=== PATIENT | female | born 1990 | race Caucasian/White ===

== ENCOUNTER 2024-08-14 04:02 | Emergency (ER) | payer OTHER, SELFPAY ==
--- NOTE | 2024-08-14 04:00 | RT.EKG_ITS ---
APPROVED REPORT Exam: Resting ECG Reason for Exam: r upper abd pain Patient Location: E HR:66 bpm ECG Measurements Heart Rate [address] 148 P 18 QRSd 94 QRS 46 QT 394 T 43 QTc 414 Conclusion Sinus rhythm...normal P axis, V-rate 60- 99 Normal Electrocardiogram
[2024-08-14 04:05] VITALS: BP 137/83; PULSE 76; RESP 16; TEMP 36.1; O2SAT 97
--- NOTE | 2024-08-14 04:09 | W.ED.GENAD ---
Discharge Plan Discharge Details Chief Complaint: Chest Pain Clinical Impression: Right upper quadrant abdominal pain Primary Care Provider: Unknown,Unknown ED Provider: Alexis Son Home Meds and New Rx's Prescriptions: No Action No Known Home Meds HPI General Mode of arrival: ambulatory. Date/Time Provider Initiated Documentation: 08/14/24 04:04. Limitations to Documentation: no limitations. Information obtained by: patient and RN notes reviewed. HPI Narrative: Patient presents to ED with right upper quadrant pain radiating into her back. Patient states that while visiting in [place] last month she ended up with an ERCP and has a biliary stent in place. She has had no issues since that procedure until [facility]. She woke up around 11 PM with right sided abdominal pain. This pain is different than her previous episodes of biliary colic. She does still have her gallbladder. Stent is still in place and she has not had follow-up since returning to [place]. She has nausea but no vomiting. Denies chest pain or shortness of breath. Denies fever or cough. Denies any urinary symptoms. Describes it mostly as a discomfort. Related Data Home Medications ?Medication ?Instructions ?Recorded ?Confirmed Unknown [No Known Home Meds] 08/14/24 08/14/24 Allergies Allergy/AdvReac Type Severity Reaction Status Date / Time Penicillins Allergy Hives Verified 08/14/24 04:13 Exam Narrative Exam Narrative: Const: WDWN female in NAD. VS per triage. HEENT: NC/AT. Normal facial exam. Neck: Supple. Trachea midline. Lungs: Normal respiratory effort. Lungs are clear. Cor: RRR without murmur. Good radial pulses. GI: Soft/ND/NT. Neuro: A+O x 3. Normal speech, mentation, gait. Cranial nerves II - XII grossly intact. No gross motor or sensory deficit. Ext: No C/C/E. Medical Decision Making Patient presenting to ED with right upper quadrant pain radiating to her back. She is status post ERCP with biliary stent about a month ago. She has nausea but no vomiting. Her abdomen is completely benign. EKG obtained at triage is normal per my read. Presentation and age not consistent with ACS. Consider possibility of PE but unlikely and PERCs out. Lungs are clear and saturations are normal. No fever or cough, doubt pneumonia. No urinary symptoms but will check urinalysis. Consider recurrent biliary colic though she states not consistent with previous symptoms. Consider biliary stent migration or problem. Consider pancreatitis. Will establish IV and give ketorolac for pain. Laboratory studies ordered. CT scan of the abdomen pelvis ordered. 06:10 - Patient's laboratory studies are unremarkable. White count is normal. Liver function is normal. Lipase normal. Urinalysis without evidence of infection. Urine negative. CT scan shows biliary stent to be in place with some pneumobilia present. Gallbladder is distended and cholecystitis cannot be excluded per preliminary radiology report. Patient states some improvement with ketorolac but still uncomfortable. Will plan right upper quadrant ultrasound this morning when available. Will likely need to discuss with GI at [facility]. [facility] results. Patient aware of plan and agreeable to same. Lab Data Lab results reviewed: Yes I reviewed the patient's lab results. Lab results narrative: see MDM ECG Data Attestation: I personally reviewed and interpreted this ECG (s) as follows: Prior ECG tracings: not available for review Interpretation: Normal PFSH All Active Problems (Updated 08/14/24 @ 06:13 by Alexis Son MD) Right upper quadrant abdominal pain (Acute) Medical History Cholelithiasis Surgical History S/P ERCP History of biliary stent insertion Social History Smoking/Tobacco Use Status: Current every day Tobacco Type: e-cigarettes Smoking risk assessment performed?: Yes Alcohol Intake: never Drug use: Never Substance use type: does not use
[2024-08-14] MEDS: Ketorolac 15 MG/ML VIAL IVP (04:46)
[2024-08-14 04:50] LABS: Abs Immature Grans 0.03 10^3/uL (0.0-0.06); Absolute Basophil Count 0.06 10^3/uL (0.0-0.2); Absolute Eosinophil Count 0.07 10^3/uL (0.0-0.7); Absolute Lymphocyte Count 1.86 10^3/uL (1.2-3.4); Absolute Monocyte Count 0.63 10^3/uL (0.1-0.8); Absolute Neutrophil Count 7.22 10^3/uL (1.2-6.7); Basophils % 0.6 %; Eosinophils % 0.7 %; HCT 42.7 % (36.0-46.0); HGB 13.9 g/dL (11.2-15.7); Immature Grans % 0.3 %; Lymphocytes % 18.8 %; MCH 29.7 pg (27.0-33.0); MCHC 32.6 % (32.0-36.0); MCV 91 fL (80-95); Monocytes % 6.4 %; Neutrophils % 73.2 %; Platelet Count 379 10^3/uL (130-400); RBC 4.68 10^6/uL (3.93-5.22); RDW 13.5 % (11.7-14.6); RDW-SD 45.9 fL; WBC 9.87 10^3/uL (4.4-10.8)
[2024-08-14 04:51] VITALS: RESP 16
--- NOTE | 2024-08-14 04:55 | NUR.NOTE ---
Advised pt a couple times about the need for urine, pt stated she would let us know when she is able to give a urine sample, SANDEE
[2024-08-14 05:00] VITALS: BP 130/80; PULSE 72; O2SAT 97
[2024-08-14 05:00] LABS: ALT 40 U/L (14-59); AST 16 U/L (15-37); Alkaline Phosphatase 100 U/L (46-116); Anion Gap 11.1 mmol/L (3-11); BUN 9 mg/dL (7-18); Bilirubin, Total 0.5 mg/dL (0.2-1.0); CO2 26.9 mmol/L (21.0-32.0); CREATININE 0.9 mg/dL (0.55-1.02); Calcium 8.9 mg/dL (8.5-10.1); Chloride 102 mmol/L (98-107); Estimated GFR 86.57 (mL/min/1.73m2); Glucose 124 mg/dL (74-106); Potassium 3.7 mmol/L (3.5-5.1); Sodium 140 mmol/L (136-145)
[2024-08-14 05:07] LABS: Lipase 22 U/L (<78)
[2024-08-14 05:18] LABS: Bilirubin Negative (Negative); Blood Negative (Negative); Clarity Clear (Clear); Glucose Negative (Negative); Ketones Negative (Negative); Leukocyte Esterase Trace (Negative); Nitrite Negative (Negative); Urobilinogen 0.2 mg/dL (Up to 0.2); pH 5.5 (5-8)
[2024-08-14 05:29] LABS: Bacteria Moderate HPF (Negative); C & S Indicated? No; Casts Negative LPF (Negative); Crystals Negative HPF (Negative); Epithelial Cells Few HPF (Negative); Mucus Trace (Negative); RBC Negative HPF (0-2)
[2024-08-14] MEDS: Normal Saline - Diluent 50 ML VIAL IJ (05:33)
[2024-08-14] MEDS: Omnipaque 350 MG/ML 100 ML BTL IJ (05:33)
--- NOTE | 2024-08-14 05:34 | DI.CT_ITS ---
Exam(s) CT ABDOMEN PELVIS W EXAM: CT ABDOMEN PELVIS W CLINICAL HISTORY: RUQ pain; stent after ERCP a month ago. TECHNIQUE: Imaging Protocol: Axial computed tomography images with coronal and sagittal reformatted images were created and reviewed CONTRAST MATERIAL: Intravenous: Omnipaque 350 Contrast volume:100 ml Oral: no COMPARISON: No exams were available for comparison FINDINGS: ABDOMEN and PELVIS: Lung Bases: No acute findings. Liver: Normal density. No suspicious mass. Gallbladder and biliary tract: The gallbladder is somewhat abnormally distended. There is wall thick ening. No calcified stones are visible. There is no pericholecystic fluid. There is a biliary sten t in place in the common bile duct. Expected biliary air is present. Pancreas: Normal density. No abnormal calcifications or inflammatory process. No evidence of mass. Spleen: Normal. Kidneys: Normal size, contour and axis. No radiodense stones. No obstructive uropathy. No suspicious masses seen. Adrenal glands: No masses seen. Vasculature: Abdominal aorta non-dilated. Soft tissues: Unremarkable. Bladder: No gross wall thickening. No calculi.No focal mass. Bowel: No obstruction. No bowel wall thickening. Appendix normal. Peritoneal cavity: No ascites. No focal collection. No mesenteric inflammatory response. No free air . Bones: Unremarkable for age. Reproductive organs: Unremarkable. Lymph nodes: No pathologically enlarged lymph nodes. IMPRESSION:: Distended thick wall bladder, suspicious for acute cholecystitis. Ultrasound recommend ed. Biliary stent in place. There is biliary air but no biliary dilatation. No evidence of pancreatitis . RADIATION DOSE DELIVERED: 767.46mGy.cm Total DLP DATA REPOSITORY: All CT scans at this facility are submitted to the National Radiology Data Registry (NRDR) Dose Index Registry (DIR) with the [employer] (A[employer]). RADIATION OPTIMIZATION: All CT scans at this facility use at least one of these dose optimization te chniques: automated exposure control; mA and/or kV adjustment per patient size (includes targeted exa ms where dose is matched to clinical indication); or iterative reconstruction.
--- NOTE | 2024-08-14 05:40 | DI.VRAD_ITS ---
PROCEDURE INFORMATION: Exam: CT Abdomen And Pelvis With Contrast Exam date and time: 08/14/2024 5:23 AM Age: 33 years old Clinical indication: Abdominal pain; Localized; Right upper quadrant (ruq); Prior surgery; Surgery date: 1-6 months; Surgery type: Stent in gallbladder; Ruq pain, stent after ercp a month ago TECHNIQUE: Imaging protocol: Computed tomography of the abdomen and pelvis with contrast. Radiation optimization: All CT scans at this facility use at least one of these dose optimization techniques: automated exposure control; mA and/or kV adjustment per patient size (includes targeted exams where dose is matched to clinical indication); or iterative reconstruction. Contrast material: [id number]; Contrast volume: 100 ml; Contrast route: INTRAVENOUS (IV); COMPARISON: No relevant prior studies available. FINDINGS: Limitations: Mild motion artifact. Liver: No focal hepatic lesion identified. Gallbladder and biliary ducts: Distended gallbladder with mural prominence. Biliary stent with pneumobilia. Pancreas: No CT evidence for acute pancreatitis. Spleen: Borderline splenomegaly. Adrenal glands: No mass. Kidneys and ureters: Right renal cyst. Stomach and bowel: No intestinal obstruction is appreciated. Appendix: No evidence of appendicitis. Intraperitoneal space: Trace pelvic fluid, nonspecific in this 33-year-old female patient. Vasculature: No abdominal aortic aneurysm. Lymph nodes: Nonspecific mesenteric and retroperitoneal lymph nodes. Urinary bladder: No acute findings. Reproductive: Corpus luteum cyst in the right ovary. Small low-density foci in the ovaries attributed to physiologic change/follicles. Bones/joints: No pertinent acute abnormality seen. Soft tissues: Fat containing umbilical hernia. IMPRESSION: 1. Distended gallbladder with mural prominence. Cholecystitis not excluded. This may be further evaluated with right upper quadrant ultrasound if clinically warranted. 2. Additional findings as above. Dictated and Authenticated by: Amy Rosenthal MD. Orderin Huy Espinoza MD
[2024-08-14 06:00] VITALS: BP 104/53; PULSE 60; RESP 16; O2SAT 97
--- NOTE | 2024-08-14 06:00 | DI.US_ITS ---
Exam(s) US ABDOMEN LIMITED EXAM: US ABDOMEN LIMITED CLINICAL HISTORY: RUQ pain; distended GB on CT TECHNIQUE: Ultrasound abdomen performed using standard protocol. COMPARISON: CT CT ABDOMEN PELVIS W from 08/14/2024 FINDINGS: LIVER: Normal size and echogenicity. No focal liver lesions are seen. GALLBLADDER: Multiple gallstones. Thickened mildly edematous gallbladder wall. No pericholecystic f luid identified. BARNETT'S SIGN: Negative. BILIARY SYSTEM: Biliary stent Right KIDNEY: Normal size. No evidence of renal calculi. No evidence of hydronephrosis. No renal mas s or cyst identified. PANCREAS: Normal where visualized. ABDOMINAL AORTA AND IVC: Visualized portions normal caliber. ASCITES: None seen. IMPRESSION: Cholelithiasis and gallbladder wall thickening, consistent with acute cholecystitis. A biliary stent is in place. There is no biliary dilatation visible. DATA REPOSITORY:
--- NOTE | 2024-08-14 07:15 | W.EDPROG ---
Date of service: 08/14/24 Time of Service: 07:15 Medical Decision Making I received signout on this 33-year-old female with history of relatively recent ERCP in [place] approximately 1 month ago. She had right upper quadrant pain last night. She had a CT scan showing a distended gallbladder. She was not tender and is resting comfortably s/p ketorolac. She is pending a right upper quadrant ultrasound. With ultrasound is concerning for cholecystitis will touch base with general surgery otherwise we will reach out to GI at [facility] to arrange for close follow-up. Patient has reassuring LFTs and no leukocytosis. I have asked healthy insulation power unit tender Claudia to place a referral to care management for establishment of a local PCP. 9:55 AM I spoke with Dr. Sanchez from general surgery who had seen the patient. Patient requested follow-up at [facility]. I reached out to the transfer center at [facility] to touch base with acute care surgery. 11:12 AM I spoke with Dr. Boni Zelaya from [facility] general surgery. He will help to arrange close outpatient follow-up. I updated the patient. She still had no pain. She will complete a p.o. challenge. I advised her that if her pain worsened or if she develop fevers that she should return to the ED. Otherwise advised that [facility] would reach out to her for follow-up. 11:15 AM Patient passed a p.o. trial in the ED. She understood her return indications and will follow up with [facility] surgery. Quality:[facility] Health Related Social Needs: No Data to Display Discharge Plan Disposition Patient Disposition: Home Discharge Details Clinical Impression: Right upper quadrant abdominal pain, Acute cholecystitis Primary Care Provider: None,None ED Provider: Ronald Wilkerson Home Meds and New Rx's Prescriptions: No Action No Known Home Meds Discharge Instructions Instructions: Nausea and Vomiting, Adult ED Additional Instructions: You are seen in the emergency department for nausea and vomiting. Your ultrasound shows that you have an inflamed gallbladder from which she will benefit from surgery. [facility] will call you for follow-up appointment. As we discussed please stick to a bland light diet. Please return to the emergency department if you develop worsening pain fevers or cannot eat or drink. Care management will call you to establish a primary care provider. Please take these nausea medications as directed. For your pain please take medications as follows: 1. Take acetaminophen (Tylenol), 1,000 mg (two 500 mg tabs) every 6 hours [2. Take ibuprofen (Advil), 400 mg every 6 hours.]
--- NOTE | 2024-08-14 09:55 | SCONE_ITS ---
Date of service: 08/14/24 Time of Service: 09:55 Assessment and Plan Assessment and plan (1) Right upper quadrant abdominal pain: Status: Acute Assessment and plan: Based on her labs and exam, I do not think this is consistent with acute cholecystitis, rather I think the findings on the ultrasound are more consistent with chronic cholecystitis secondary to her known gallstones. I do think she would benefit from cholecystectomy, however, since she has complicated choledocholithiasis in the past. Although the stent offer some protection, I explained that the traditional treatment would be relatively urgent removal of the gallbladder (typically performed during the index hospitalization) and then removal of the stent thereafter. I explained that we do not have ERCP available to us here, and ultimately that procedure would need to be performed at [facility], or some other local hospital with advanced endoscopy. Krysta is quite interested in trying to have the procedures done in a single setting. I explained that in my experience, that would be extraordinarily unusual. At this point, she is interested in a second opinion at [facility], where general surgery and gastroenterology would both be available. In the absence of acute cholecystitis, I think it is reasonable to allow her to pursue that. I explained that I am more than happy to see her at any point for elective cholecystectomy if she reconsiders this. And we could certainly help facilitate referrals to other hospitals for the ERCP if she needs help with that. She also had several questions regarding establishing primary care, and I encouraged her to follow-up with the emergency department and other local resources. History of Present Illness History of Present Illness Chief Complaint: Right upper abdominal and back pain Narrative: Krysta is 33 years old. About 1 month ago, she was vacationing in [place] when she developed right-sided abdominal and flank pain. She went to urgent care, her liver function tests were found to be abnormal. She was referred to the emergency department where she was eventually diagnosed with choledocholithiasis. She underwent ERCP with stenting, and was counseled towards cholecystectomy. However, since she was on vacation, she elected to forego the operation at that point, and address it in the future. She came back to [place], and has been doing pretty well overall. She has not been able to establish any primary care yet, nor is she had any plans for follow-up regarding her gallbladder and common bile duct stent. She felt well through yesterday, and ate a regular dinner. Sometime before midnight, she was awoken from sleep with right-sided abdominal pain that radiated from the midportion of the right chest to the midportion of the right abdomen. It sounds like it was a little bit colicky in nature. She describes it is different than when she had her choledocholithiasis, where the pain was more intense on her back. She denied any nausea or vomiting. She came to the emergency department because of the discomfort, and her history. In the ER, she was found to have normal vital signs, normal white blood cell count, normal liver function tests. She underwent a CT scan that demonstrated a distended gallbladder, perhaps some gallbladder wall thickening, and a follow-up ultrasound was recommended. That test confirmed the presence of some gallbladder wall thickening, suggestive of acute cholecystitis. When I met with her in the emergency department, she tells me that her symptoms have all resolved. She is pain-free and hungry this morning. PFSH All Active Problems (Updated 08/14/24 @ 06:13 by Alexis Son MD) Right upper quadrant abdominal pain (Acute) Medical History Cholelithiasis Surgical History S/P ERCP History of biliary stent insertion Social History Smoking/Tobacco Use Status: Current every day Tobacco Type: e-cigarettes Smoking risk assessment performed?: Yes Alcohol Intake: never Drug use: Never Substance use type: does not use Exam Const General: cooperative, comfortable and no acute distress Orientation: alert, awake and oriented x3 GI Inspection: normal to inspection and non-distended Palpation: soft, no guarding and nontender Results Last Vital Signs Temp 97.0 F L 08/14/24 04:05 Pulse 60 08/14/24 06:00 Resp 16 08/14/24 06:00 BP 104/53 L 08/14/24 06:00 Pulse Ox 97 08/14/24 06:00 Labs 08/14/24 04:35 08/14/24 04:35 Labs: Laboratory Results - last 24 hr 08/14/24 08/14/24 04:35 04:42 WBC 9.87 RBC 4.68 Hgb 13.9 Hct 42.7 MCV 91 MCH 29.7 MCHC 32.6 RDW 13.5 Plt Count 379 MPV 10.0 Immature Gran % 0.3 Neutrophils % 73.2 Lymphocytes % 18.8 Monocytes % 6.4 Eosinophils % 0.7 Basophils % 0.6 Nucleated RBC % 0.0 Absolute Neutrophils 7.22 H Absolute Lymphocytes 1.86 Absolute Monocytes 0.63 Absolute Eosinophils 0.07 Absolute Basophils 0.06 Sodium 140 Potassium 3.7 Chloride 102 Carbon Dioxide 26.9 Anion Gap 11.1 H BUN 9 Creatinine 0.9 Est GFR (CKD-EPI 2020) 86.57 Glucose 124 H Calcium 8.9 Total Bilirubin 0.5 AST 16 ALT 40 Alkaline Phosphatase 100 Total Protein 8.0 Albumin 4.0 Lipase 22 Urine Color Yellow Urine Clarity Clear Urine pH 5.5 Ur Specific [place] 1.020 Urine Protein Negative Urine Ketones Negative Urine Blood Negative Urine Nitrite Negative Urine Bilirubin Negative Urine Urobilinogen 0.2 Ur Leukocyte Esterase Trace H Urine RBC Negative Urine WBC 3-5 Ur Epithelial Cells Few Urine Crystals Negative Urine Bacteria Moderate Urine Casts Negative Urine Mucus Trace Ur Culture Indicated? No Urine Glucose Negative
[2024-08-14 11:30] VITALS: BP 96/59; PULSE 60; RESP 16; O2SAT 98
== END 2024-08-14 11:31 | disposition home or self-care (01) ==
PROVIDERS: Emergency Medicine; Emergency Provider Emergency Medicine
DX: R10.11 Right upper quadrant pain (principal); K81.0 Acute cholecystitis; F17.290 Nicotine dependence, other tobacco product, uncomplicated; Z96.0 Presence of urogenital implants
CPT/HCPCS: 00123; 80053; 81025; 83690; 93005; 96374; 99285; 74177; 76705; 81003; 81015; 85025; 93010; J1885; J3490